=== PATIENT | male | born 1985 | race African-American/Black ===

== ENCOUNTER 2018-08-24 15:07 | Emergency (ER) | payer MEDICARE ==
[~2018-08-24] VITALS: Ht 180.3 cm; Wt 68.0 kg
[~2018-08-24 15:07] MED LIST: SULF1TAB24 PO
[2018-08-24 15:29] VITALS: BP 138/91
[2018-08-24] MEDS ORDERED: cefTRIAXone IM 250 MG VIAL IM ONE (15:30)
[2018-08-24] MEDS ORDERED: AZITHROMYCIN 250 MG TABLET. PO ONE (15:30)
[2018-08-24] MEDS ORDERED: metroNIDAZOLE 500 MG TABLET PO ONE (15:30)
[2018-08-24 15:38] LABS: BILIRUBIN,URINE NEGATIVE (NEG); CLARITY,URINE CLEAR; COLOR,URINE YELLOW; NITRITE,URINE NEGATIVE (NEG); PROTEIN,URINE NEGATIVE (NEG-TRACE)
--- NOTE | 2018-08-24 15:38 | PHYS DOC ---
Past Medical History Past Medical History: No Pertinent History Past Surgical History: No Surgical History Alcohol Use: Occasionally Drug Use: None Adult General Chief Complaint Chief Complaint: SEXUALLY TRANSMITTED DISEASE HPI HPI Patient is a 33 year old male with no significant medical history who presents today with STD concern. Patient states he got exposed and would like to be tested and treated. Review of Systems Review of Systems Constitutional: Denies fever or chills [] GI: Denies abdominal pain, nausea, vomiting, bloody stools or diarrhea [] : Reports STD concern. Denies dysuria or hematuria [] Musculoskeletal: Denies back pain or joint pain [] Integument: Denies rash or skin lesions [] Neurologic: Denies headache, focal weakness or sensory changes [] All other systems were reviewed and found to be within normal limits, except as documented in this note. Current Medications Current Medications Current Medications Medications (Trade) Dose Ordered Sig/[place] Start Time Stop Time Status Last Admin Dose Admin Azithromycin (Zithromax) 1,000 mg 1X ONCE 08/24/18 15:30 08/24/18 15:31 DC Ceftriaxone Sodium (Rocephin Im) 250 mg 1X ONCE 08/24/18 15:30 10 15:31 DC Metronidazole (Flagyl) 2,000 mg 1X ONCE 08/24/18 15:30 08/24/18 15:31 DC Allergies Allergies Allergies Coded Allergies Type Severity Reaction Last Updated Verified No Known Drug Allergies 08/03/16 No Physical Exam Physical Exam Constitutional: Well developed, well nourished, no acute distress, non-toxic appearance. [] Lungs & Thorax: Bilateral breath sounds clear to auscultation [] Abdomen: Bowel sounds normal, soft, no tenderness, no masses, no pulsatile masses. [] Skin: Warm, dry, no erythema, no rash. [] Back: No tenderness, no CVA tenderness. [] Extremities: No tenderness, no cyanosis, no clubbing, ROM intact, no edema. [] Neurologic: Alert and oriented X 3, normal motor function, normal sensory function, no focal deficits noted. [] Psychologic: Affect normal, judgement normal, mood normal. [] Current Patient Data Vital Signs Vital Signs Date Time Temp Pulse Resp B/P (MAP) Pulse Ox O2 Delivery O2 Flow Rate FiO2 08/24/18 15:29 98.3 87 20 138/91 (107) 97 Room Air 98.3 EKG EKG [] Radiology/Procedures Radiology/Procedures [] Course & Med Decision Making Course & Med Decision Making Pertinent Labs and Imaging studies reviewed. (See chart for details) This is a 33-year-old male patient presenting to the ED today with concern for STDs. Patient was treated. Education provided. Follow-up with the health department as needed. Dragon Disclaimer Dragon Disclaimer This electronic medical record was generated, in whole or in part, using a voice recognition dictation system. Departure Departure Impression: Primary Impression: Concern about STD in male without diagnosis Disposition: HOME, SELF-CARE Condition: STABLE Referrals: NO PCP (PCP) Follow-up with the health department as needed Patient Instructions: Sexually Transmitted Diseases-[employer] Additional Instructions: You were evaluated in the emergency room and treated for sexually transmitted diseases. Use protection at all times. Follow-up with your doctor in 1-2 weeks of the health department. Do not have sex for 2 weeks. Contact all your sex partners, let them know you were treated for STDs and ask them to seek treatment too. ISA MENG [employer] Aug 24, 2018 15:38
[2018-08-24 15:50] LABS: BACTERIA,URINE 0 /HPF (0-FEW); RBC,URINE 0 /HPF (0-2); SQUAMOUS EPITHELIAL CELL,UR FEW /LPF; WBC,URINE 0 /HPF (0-4)
== END 2018-08-24 15:55 | disposition home or self-care (01) ==
LOC: ER 15:07
DX: Z20.2 Contact with and (suspected) exposure to infections with a predominantly sexual mode of transmission (principal)
CPT/HCPCS: 81001; 87491; 87591; 96372; 99284; J0696; Q0144